=== PATIENT | female | born 1995 | race Caucasian/White ===

== ENCOUNTER → 2017-01-28 | Outpatient (CLI) | payer BC | END | disposition home or self-care (01) | LOC: C.PAPS 11:36 | PROVIDERS: ATTEND Family Medicine | DX: Z01.419 Encounter for gynecological examination (general) (routine) without abnormal findings (principal) ==

== ENCOUNTER 2018-09-27 13:01 | Inpatient (IN) ==
[2018-09-27] MEDS: LACTATED RINGER'S 1,000 ML IV PRN ×4 (13:25→21:22)
[2018-09-27] MEDS ORDERED: OXYTOCIN 30 UNITS/500 ML BAG IV PRN ×2 (13:33→20:14)
--- NOTE | 2018-09-27 13:48 | History & Physical Report ---
Date of Service September 27, 2018 Assessment & Plan (1) Normal labor: IUP at 40+ weeks in labor patient requesting epidural analgesia anticipate vaginal delivery. Present on Admission?: Yes (2) Post-dates : History of Present Illness Primary Care Provider: Sheila Noble MD Patient is a 23 yo white female who presents at 40+ weeks in active labor. no bloody show or SROM. GBS(-) was complicated a diffuse rash that occured first time at 14 weeks & then reoccurred again about 2 weeks ago for which she received a steroid dose pack. She finished it 6 days ago. Allergies Allergy/AdvReac Type Severity Reaction Status Date / Time No Known Drug Allergies Allergy Verified 09/25/18 09:03 latex AdvReac Rash Verified 09/25/18 09:03 Home Medications Home Medications Medication Instructions Recorded Confirmed Type vit [id number] 1 tab PO DAILY 05/19/18 09/25/18 History [ Vitamin] ferrous sulfate 325 tab PO DAILY 09/09/18 09/25/18 History methylprednisolone 4 mg tablets in 4 mg PO .COMPLEX #21 ea 09/17/18 09/25/18 Rx a dose pack Patient History Medical History Anxiety No meds Currently Depression No meds Exercise-induced asthma Has not had to use an inhaler for years History of renal calculi History of varicella Hx of migraines No meds [place] teeth removed Surgical History History of repair of ACL 2013 S/P wisdom tooth extraction 2016 Family History Mother Depression Social History Preferred Language: Macanese Communication Ability: Effective Clinical Research Tech Required: No Beliefs That Will Affect Care: None marital status: Single Current Living Situation: Significant Other current occupational status: unemployed Feels Safe at Home: Yes Smoking Status: Never smoker Second Hand Exposure: No ; Hx Alcohol Use: No Hx Substance Use: No Review of Systems All systems reviewed & are unremarkable except as noted in HPI & below Physical Exam Constitutional: WD/WN, vitals as above Respiratory: normal respiratory effort, lungs clear to auscultation Cardiovascular: RRR, no murmur, no edema Extremities: no calf tenderness Gastrointestinal (Abdomen): normal bowel sounds, soft, nontender, no hepatosplenomegaly Psychiatric: A+Ox3, euthymic affect Genitourinary: OB Exam Abdomen: + vertex, + estimated weight (7-8 pounds) and + regular contractions (every 2-3 minutes) Manual OB Exam: + cervical dilation 5 cm, + cervical effacement 100% and + station -1 OB Exam Monitor Tracing: + external FHT monitor used, + external uterine monitor used, + category II and + normal FHT variability Code Status & VTE Plan VTE Prophylaxis Plan VTE Prophylaxis will be ordered: No
[2018-09-27 13:56] LABS: Hematocrit (blood only) 34.9 % (37-47); Hemoglobin 11.4 g/dL (12.0-16.0); Mean Platelet Volume 11.6 fL (7.4-10.4); Platelet Count 206 K/uL (130-400); RDW Coefficient of Variation 14.6 % (11.5-14.5); RDW Standard Deviation 41.1 fL (36.4-46.3); Red Blood Count 4.53 M/uL (4.2-5.4); White Blood Count 17.55 K/uL (4.8-10.8)
[2018-09-27 14:01] LABS: Mean Corpuscular Hgb Conc 32.7 g/dL (32-36)
[2018-09-27] MEDS ORDERED: BUPIVACAINE 0.25% 30 ML VIAL ONE (14:56)
[2018-09-27] MEDS ORDERED: ePHEDrine sulfate 50 MG/ML AMP ONE (14:56)
[2018-09-27] MEDS ORDERED: fentaNYL citrate 100 MCG/2 ML VIAL ONE (14:56)
[2018-09-27] MEDS ORDERED: fentaNYL 2MCG/ML ROPIV 1.25MG/ML 100 ML BAG EPI ONE (14:57)
--- NOTE | 2018-09-27 15:08 | Anesthesiology Consultation ---
Date of Service September 27, 2018 Assessment & Plan (1) Encounter for pre-operative examination: Chart Review Chart Review: Patient NOT seen in Pre Admission Testing and Acceptable Risk for Labor Epidural Consults Requested none ASA ASA2 Proposed Anesthesia Anesthesia Type: CSE History Height/Weight Height: 5 ft Weight: 72.575 kg Allergies Allergy/AdvReac Type Severity Reaction Status Date / Time No Known Drug Allergies Allergy Verified 09/25/18 09:03 latex AdvReac Rash Verified 09/25/18 09:03 Medications Home Medications Medication Instructions Recorded Confirmed Last Taken vit no.[id number] 1 tab PO DAILY 05/19/18 09/27/18 09/26/18 [ Vitamin] ferrous sulfate 325 tab PO DAILY 09/09/18 09/27/18 09/26/18 Active Medications Generic Name Dose Route Start Last Admin Trade Name Freq PRN Reason Stop Dose Admin Lactated Ringer's 1,000 mls @ 125 mls/hr 09/27/18 13:33 09/27/18 14:47 Lr IV 09/29/18 13:32 999 mls/hr .Q8H PRN Administration L&D Protocol Protocol Past Medical History Medical History Anxiety No meds Currently Depression No meds Exercise-induced asthma Has not had to use an inhaler for years History of renal calculi History of varicella Hx of migraines No meds [place] teeth removed Past Family History Family History Mother Depression Past Surgical History Surgical History History of repair of ACL 2013 S/P wisdom tooth extraction 2016 Social History Smoking Status: Never smoker Hx Alcohol Use: No Hx Substance Use: No substance use type: does not use Physical Exam Vital Signs Last Vital Signs Temp 36.9 C 09/27/18 14:07 Pulse 101 H 09/27/18 15:05 Resp 16 09/27/18 14:07 BP 109/57 L 09/27/18 15:05 Pulse Ox 97 09/27/18 15:05 Testing Laboratory Results 09/27/18 13:45
[2018-09-27] MEDS ORDERED: NALOXONE HCL 0.4 MG/1 ML VIAL/CARP IV PRN ×2 (15:22→23:31)
[2018-09-27] MEDS ORDERED: ePHEDrine sulfate 50 MG/ML AMP IV PRN ×2 (15:22→23:31)
[2018-09-27] MEDS ORDERED: NALBUPHINE HCL INJ 10 MG/ML AMP IV PRN ×2 (15:22→23:31)
[2018-09-27] MEDS ORDERED: fentaNYL 2MCG/ML ROPIV 1.25MG/ML 100 ML BAG EPI PRN (15:22)
[2018-09-27] MEDS ORDERED: ONDANSETRON INJ 2 MG/ML 2 ML VIAL IV PRN ×2 (15:22→23:31)
[2018-09-27] MEDS ORDERED: NALOXONE HCL 1 MG in SODIUM CHLORIDE 0.9% 1000ML 1,000 ML IV PRN ×2 (15:22→23:31)
[2018-09-27] MEDS ORDERED: DiphenhydrAMINE HCL 50 MG/ML VIAL IV PRN ×2 (15:22→23:31)
[2018-09-27] MEDS ORDERED: CALCIUM CARBONATE 500 MG CHEWABLE TAB PO PRN (20:31)
[2018-09-27] MEDS ORDERED: CALCIUM CARBONATE 500 MG CHEWABLE TAB ONE (20:31)
[2018-09-27] MEDS ORDERED: ACETAMINOPHEN 325 MG TAB PO PRN (20:42)
[2018-09-27] MEDS ORDERED: ACETAMINOPHEN 325 MG TAB ONE (20:43)
[2018-09-27] MEDS ORDERED: ACETAMINOPHEN 65 ML IV PRN (21:30)
[2018-09-27] MEDS ORDERED: LACTATED RINGER'S 1,000 ML IV SCH (23:15)
[2018-09-27] MEDS ORDERED: CITRIC ACID/SODIUM CITRATE 15 ML UDC ONE (23:16)
[2018-09-27] MEDS ORDERED: cefOXitin 2,000 MG in DEXTROSE 5% 50 ML IV STA (23:19)
[2018-09-27] MEDS ORDERED: CITRIC ACID/SODIUM CITRATE 15 ML UDC PO STA (23:20)
[2018-09-27] MEDS ORDERED: MEPERIDINE HCL 25 MG/ML CARP IV PRN (23:31)
[2018-09-27] MEDS ORDERED: HYDROmorphone INJ 0.5 MG/0.5 ML SYR IV PRN (23:31)
[2018-09-27] MEDS ORDERED: MoRPHine SULFATE PF 1 MG/ML 10 ML AMP/VIAL INT SPINAL ONE (23:31)
[2018-09-27] MEDS ORDERED: NALOXONE HCL 0.08 MG in SYRINGE 1.8 ML IV PRN (23:31)
[2018-09-27] MEDS ORDERED: PROMETHAZINE HCL 25 MG in SODIUM CHLORIDE 0.9% 50 ML IV PRN (23:31)
[2018-09-27] MEDS ORDERED: LACTATED RINGER'S 500 ML IV PRN (23:31)
[2018-09-27] MEDS ORDERED: SODIUM CHLORIDE 0.9% 1000ML 1,000 ML IV SCH (23:45)
[2018-09-27] MEDS ORDERED: DC INTRASPINAL MORPHINE SCH (23:45)
[2018-09-27] MEDS ORDERED: NO NARCOTICS OR SEDATIVES SCH (23:45)
[2018-09-27] MEDS ORDERED: OXYTOCIN 10 UNITS/ML VIAL ONE (23:58)
[2018-09-27] MEDS ORDERED: MoRPHine SULFATE PF 1 MG/ML 10 ML AMP/VIAL ONE (23:58)
[2018-09-27] MEDS ORDERED: PHENYLEPHRINE 100MCG/ML 5ML SYR ONE (23:59)
[2018-09-28] MEDS ORDERED: LACTATED RINGER'S 1,000 ML IV SCH ×2 (00:15→00:45)
[2018-09-28] MEDS ORDERED: BENZOCAINE 20% AER SPR 82.5 GM CAN EXT PRN (00:36)
[2018-09-28] MEDS ORDERED: SENNA 8.6 MG TAB PO PRN (00:36)
[2018-09-28] MEDS ORDERED: HYDROCORTISONE ACETATE 25 MG SUPP PR PRN (00:36)
[2018-09-28] MEDS ORDERED: MAGNESIUM HYDROXIDE SUSP 30 ML UDC PO PRN (00:36)
[2018-09-28] MEDS ORDERED: DIPHTHERIA/TETANUS/PERTUSSIS 0.5 ML SYR/VIAL IM ONE (00:36)
[2018-09-28] MEDS ORDERED: SUPERCREAM 0.870% 15 GM JAR EXT PRN (00:36)
[2018-09-28] MEDS ORDERED: OXYTOCIN 20 UNITS in D5W AND LACTATED RINGERS 1,000 ML IV SCH (00:45)
--- NOTE | 2018-09-28 00:59 | Anesthesia Procedure Note ---
Date of Service September 28, 2018 Anesthesia Post Epidural Note Vital Signs Vital Signs: Temp Pulse Resp BP Pulse Ox 38.0 C H 117 H 20 116/58 L 99 09/27/18 22:58 09/28/18 00:57 09/27/18 22:58 09/28/18 00:44 09/28/18 00:57 Notes Mental Status: alert / awake / arousable Nausea / Vomiting: adequately controlled Pain: adequately controlled Airway Patency, RR, SpO2: stable & adequate BP & HR: stable & adequate Hydration State: stable & adequate Neuraxial Anesthesia: was administered and sensory block is resolving Anesthetic Complications: no major complications apparent and Pt Satisfied with anesthetic care Epidural: Removed without complications and With tip intact
--- NOTE | 2018-09-28 01:07 | Anesthesiology Progress Note ---
Date of Service September 28, 2018 Anesthesia Post Procedure Vital Signs Vital Signs: Temp Pulse Resp BP Pulse Ox 09/28/18 01:03 83 115/72 09/28/18 01:02 92 H 116/73 100 09/28/18 00:57 117 H 99 09/28/18 00:52 123 H 94 09/28/18 00:47 118 H 100 09/28/18 00:44 120 H 116/58 L 09/27/18 23:25 136 H 97 09/27/18 23:20 94 H 98 09/27/18 23:15 121 H 97 09/27/18 23:10 97 H 100 09/27/18 23:05 106 H 99 09/27/18 23:00 84 99 09/27/18 22:58 38.0 C H 20 09/27/18 22:55 117 H 98 09/27/18 22:50 91 H 99 09/27/18 22:47 85 112/69 09/27/18 22:45 88 99 09/27/18 22:40 100 H 100 09/27/18 22:35 82 99 09/27/18 22:31 89 108/61 09/27/18 22:30 92 H 100 09/27/18 22:25 78 100 09/27/18 22:20 80 99 09/27/18 22:17 83 117/68 09/27/18 22:15 85 97 09/27/18 22:10 87 98 09/27/18 22:05 84 97 09/27/18 22:01 83 126/66 09/27/18 22:00 89 98 09/27/18 21:55 83 99 09/27/18 21:50 96 H 98 09/27/18 21:45 102 H 98 09/27/18 21:40 82 98 09/27/18 21:35 94 H 97 09/27/18 21:31 100 H 121/72 09/27/18 21:30 81 98 09/27/18 21:25 37.8 C H 92 H 18 98 09/27/18 21:20 77 98 09/27/18 21:16 81 122/77 09/27/18 21:15 80 98 09/27/18 21:10 80 100 09/27/18 21:05 85 97 09/27/18 21:01 84 115/73 08/18/19 21:00 83 98 18/19 20:55 103 H 98 18/19 20:50 86 98 18/19 20:46 122/77 18/19 20:45 81 98 18/19 20:40 84 98 18/19 20:36 38.0 C H 18 18/19 20:35 91 H 98 18/19 20:31 96 H 125/75 18/19 20:30 89 98 18/19 20:25 84 97 18/19 20:20 99 H 97 18/19 20:17 96 H 123/80 18/19 20:15 104 H 97 18/19 20:10 89 97 18/19 20:05 78 98 18/19 20:02 82 130/83 18/19 20:00 88 97 18/19 19:55 90 97 18/19 19:50 78 97 18/19 19:46 85 130/84 18/19 19:45 86 98 18/19 19:40 92 H 97 18/19 19:35 94 H 97 18/19 19:31 76 116/66 18/19 19:30 83 97 18/19 19:25 79 98 18/19 19:20 77 97 18/19 19:17 77 109/62 18/19 19:15 79 98 18/19 19:10 78 98 18/19 19:08 37.3 C 18 18/19 19:05 81 98 18/19 19:02 75 118/71 18/19 19:00 76 97 18/19 18:55 82 98 18/19 18:50 84 96 18/19 18:47 83 119/63 18/19 18:45 85 96 18/19 18:40 37.0 C 86 16 98 18/19 18:35 75 97 18/19 18:31 72 120/70 18/19 18:30 76 97 18/19 18:25 86 97 18/19 18:20 78 97 18/19 18:18 18 08/18/19 18:17 102 H 16 129/79 18/19 18:15 81 98 18/19 18:10 78 98 1819 18:05 82 97 18/19 18:01 71 125/69 1819 18:00 84 98 1819 17:55 96 H 97 18/19 17:50 82 98 18/19 17:46 70 120/73 18/19 17:45 71 98 18/19 17:40 102 H 97 18/19 17:35 83 98 18/19 17:31 71 16 112/65 18/19 17:30 77 97 18/19 17:25 75 98 18/19 17:20 81 98 18/19 17:18 73 109/67 18/19 17:15 74 97 19 17:10 74 97 1819 17:05 72 98 19 17:02 71 116/57 L 09/27/18 17:00 81 18 97 1819 16:55 74 97 1819 16:50 73 98 18/19 16:47 76 18 125/69 19 16:45 78 98 18/19 16:40 92 H 98 19 16:35 85 98 1819 16:31 79 107/68 18/19 16:30 76 99 18/19 16:25 90 98 1819 16:20 71 97 1819 16:17 69 16 111/59 L 1819 16:15 69 98 18/19 16:10 78 97 18/19 16:05 85 98 18/19 16:01 96 H 113/57 L 18/19 16:00 86 98 18/19 15:55 97 H 18 98 18/19 15:50 106 H 98 18/19 15:45 84 104/56 L 97 18/19 15:43 86 107/55 L 18/19 15:41 73 106/57 L 18/19 15:40 86 98 18/19 15:39 72 100/55 L 08/18/19 15:37 95 H 108/61 09/27/18 15:35 90 107/57 L 97 09/27/18 15:33 104 H 18 105/58 L 09/27/18 15:31 102 H 109/55 L 09/27/18 15:30 82 98 09/27/18 15:29 88 18 112/58 L 09/27/18 15:27 90 111/55 L 09/27/18 15:25 78 18 115/56 L 98 09/27/18 15:23 90 109/58 L 09/27/18 15:21 82 18 116/62 09/27/18 15:20 76 97 09/27/18 15:19 89 18 101/58 L 09/27/18 15:17 83 109/58 L 09/27/18 15:15 89 105/57 L 97 09/27/18 15:13 86 18 101/58 L 09/27/18 15:11 72 108/57 L 09/27/18 15:10 78 97 09/27/18 15:09 90 18 108/57 L 09/27/18 15:07 76 114/55 L 09/27/18 15:05 101 H 18 109/57 L 97 09/27/18 15:03 82 111/56 L 09/27/18 15:01 86 108/58 L 09/27/18 15:00 83 97 09/27/18 14:59 93 H 18 108/59 L 09/27/18 14:57 86 104/58 L 09/27/18 14:55 37.0 C 97 H 18 108/58 L 97 09/27/18 14:50 85 97 09/27/18 14:47 90 132/83 09/27/18 14:45 93 H 99 09/27/18 14:40 82 99 09/27/18 14:35 80 100 09/27/18 14:30 81 100 09/27/18 14:25 90 99 09/27/18 14:20 92 H 100 09/27/18 14:15 86 100 09/27/18 14:10 82 100 09/27/18 14:07 36.9 C 89 16 98 09/27/18 14:05 89 98 09/27/18 14:00 97 H 98 09/27/18 13:55 83 99 09/27/18 13:50 91 H 99 09/27/18 13:46 96 H 133/87 Transfer of Care Handoff Completed per policy Notes Mental Status: alert / awake / arousable and participated in evaluation Patient Amnestic to Procedure: Yes Nausea / Vomiting: adequately controlled Pain: adequately controlled Airway Patency, RR, SpO2: stable & adequate BP & HR: stable & adequate Hydration State: stable & adequate Neuraxial Anesthesia: was administered and sensory block is resolving Anesthetic Complications: no major complications apparent
[2018-09-28] MEDS: KETOROLAC 30 MG/ML VIAL IV PRN ×2 (01:35→15:22)
--- NOTE | 2018-09-28 02:03 | Operative Report ---
DATE OF OPERATION: 09/27/2018 SURGEON: Heather Sheppard MD SHORE WORKING SUPERVISOR: Maribel Miller RN. PREOPERATIVE DIAGNOSIS: intolerance of labor. POSTOPERATIVE DIAGNOSES: intolerance of labor plus marginal abruption in occiput posterior presentation, delivery of a viable female , 9 pounds 9 ounces, Apgars 9 and 9. PROCEDURE: Primary low transverse section. ANESTHESIA: Epidural. BLOOD LOSS: 600 mL. HISTORY: The patient is a 23-year-old G1, P0 white female, EDC of 09/21/2018 who presented in active labor. She received effective epidural analgesia. There were moderate variables that responded to position change. Otherwise, initially the heart tracing was reassuring. Contractions were every 2 minutes. Membranes were ruptured for clear fluid. She progressed to 7 cm, but unfortunately during this time period, she developed a temperature to 38 degrees centigrade. The heart tracing then began to show late decelerations and tachycardia. There also continued to be a large amount of bloody show suspicious for an abruption. Decision was then made to proceed to section because the late decelerations did not respond to fluids, position change, or oxygen. The patient and the father of baby were agreeable to proceeding with the section and all questions were answered to their satisfaction. GROSS FINDINGS: The uterus is gravid and consistent with term and size. Bilateral ovaries and fallopian tubes are grossly normal. The was delivered from the occiput posterior presentation. The placenta delivered easily with moderate traction on the cord. There appeared to be a small amount of clot on the leading edge of the placenta. DESCRIPTION OF PROCEDURE: After the patient received adequate epidural anesthesia, she was prepped and draped in the usual sterile fashion. A low transverse skin incision was made with a scalpel and carried to the fascia with the same scalpel. The fascial incision was then extended with Blount scissors. The edges were then grasped with Jose Miguel clamps and the underlying rectus muscles bluntly and sharply dissected off of the overlying fascia. The peritoneum was then entered bluntly. The bladder blade was then placed into the peritoneal cavity. The bladder flap was then taken down and placed behind the bladder blade. The lower uterine segment was entered with a scalpel and extended transversely. Membranes were ruptured for clear fluid. The was delivered from the occiput posterior presentation with moderate fundal pressure. The rest of the delivered through the incision without difficulty. There was spontaneous crying. The was moving all 4 limbs and was vigorous upon delivery. The cord was then clamped and cut and the infant was handed off to Dr. Mooney who was in attendance as record pressman. The placenta was then expressed intact with a 3-vessel cord. The uterus was exteriorized and covered with a clean lap sponge. The uterine cavity was gently cleared of some retained membranes. Otherwise, the uterine cavity was free of any other placental tissue or membranes. The uterus was then closed in 2 layers in a running locking imbricating fashion with 0 Monocryl. Hemostasis was noted to be excellent on the uterine incision. The posterior cul-de-sac was irrigated with normal saline. A large clot was removed from the right gutter. The left gutter was clear of any clots or fluid. The anterior cul-de-sac was then irrigated with normal saline. The incision was examined once more and continued to have excellent hemostasis. This was done after the uterus was placed back inside the abdominal cavity. After ensuring that the uterine incision had excellent hemostasis, the rectus muscles were brought together in the midline with individual stitches of 0 Monocryl. The fascia was closed in a running fashion with 0 Vicryl. After irrigating the adipose layer with normal saline, the skin edges were reapproximated using a subcuticular stitch of 4-0 Vicryl. Urine was clear at the end of the case. Mother and were doing well after delivery. I attest to the content of the Intraoperative Record and any orders documented therein. Any exceptions are noted below. MARTHA
[2018-09-28] MEDS: OXYTOCIN 20 UNITS in LACTATED RINGER'S 1,000 ML IV SCH ×2 (02:38→11:15)
--- NOTE | 2018-09-28 06:18 | Obstetrical Progress Note ---
Date of Service September 28, 2018 Assessment & Plan (1) S/P emergency : Sarah is a 23 yo on POD 1 after an emergency c/s that was done due to a intolerance of labor (late decelerations non responsive to intervention with position changes, oxygen and fluids), and suspected placental abruption. - GBS - , Blood Type O+, Rubella immune -Vitals reviewed and WNL (Tmax 38.0); patient's fever has resolved. -patient is doing clinically well Remove guy this evening; encourage ambulation, progress diet as tolerated, provide analgesia as needed, monitor lochia - After discharge will have [address] Sheppard. Subjective Ambulation: ambulating normally Voiding: guy catheter in place Passing Gas:: Yes Diet Tolerance:: regular diet Lochia:: Moderate Feeding Type:: breast feeding Current Pain Level(1-10): 3 patient examined at bedside Constitutional: no fever, no chills and no sweats Respiratory: no cough and no dyspnea Cardiovascular: no chest pain and no palpitations Breast: no breast pain Gastrointestinal: no nausea and no vomiting Genitourinary (female): no dysuria and no urinary frequency Neurologic: no headache(s) Physical Exam Constitutional WD/WN, vitals as above no acute distress Respiratory normal respiratory effort, lungs clear to auscultation does not use accessory muscles Auscultation: no crackles, no rhonchi, no wheezes and no pleural rub Cardiovascular Rate/Rhythm: regular rate and regular rhythm Heart Sounds: normal S1 and normal S2; no gallop, no murmur and no cardiac rub Extremities: no calf tenderness and no pedal edema Gastrointestinal (Abdomen) Inspection/Auscultation: normal bowel sounds; abdomen not distended Percussion/Palpation: abdomen soft Genitourinary Uterus: fundus firm, palpable _ cm below the umbilicus surgical incision: dressing is in place and dry; appropriate post- operative tenderness Results & Data Vital Signs (Past 12 Hours) Vital Signs Temp Pulse Pulse Resp BP BP Pulse Ox 09/28/18 06:05 16 97 09/28/18 05:40 36.6 C 73 18 118/79 97 09/28/18 04:10 36.5 C 87 18 114/68 95 09/28/18 03:40 36.8 C 18 09/28/18 03:33 77 107/61 95 09/28/18 03:31 83 93 09/28/18 03:28 113 H 97 09/28/18 03:24 84 104/66 09/28/18 03:23 87 96 09/28/18 03:18 85 95 09/28/18 03:16 82 94 09/28/18 03:13 85 105/56 L 96 09/28/18 03:08 80 95 09/28/18 03:04 81 101/55 L 09/28/18 03:03 81 95 09/28/18 02:58 85 95 09/28/18 02:54 179 H 112/52 L 09/28/18 02:53 88 96 09/28/18 02:48 88 96 09/28/18 02:44 36.8 C 18 09/28/18 02:43 96 H 101/55 L 97 09/28/18 02:38 87 96 09/28/18 02:34 90 103/59 L 09/28/18 02:33 88 96 09/28/18 02:30 20 09/28/18 02:28 99 H 96 09/28/18 02:24 88 110/56 L 09/28/18 02:23 91 H 96 09/28/18 02:18 85 96 09/28/18 02:13 83 117/61 96 09/28/18 02:08 82 96 09/28/18 02:04 91 H 122/65 09/28/18 02:03 91 H 96 09/28/18 01:58 73 95 09/28/18 01:53 86 96 09/28/18 01:48 79 98 09/28/18 01:43 36.8 C 75 18 117/77 09/28/18 01:42 69 98 09/28/18 01:37 72 97 09/28/18 01:33 74 18 124/76 09/28/18 01:32 84 98 09/28/18 01:27 77 98 09/28/18 01:24 79 18 119/71 09/28/18 01:22 74 98 09/28/18 01:17 71 97 09/28/18 01:14 78 18 111/69 09/28/18 01:12 82 98 09/28/18 01:07 75 99 09/28/18 01:03 83 115/72 09/28/18 01:02 92 H 16 116/73 100 09/28/18 00:57 117 H 99 09/28/18 00:55 18 09/28/18 00:52 123 H 94 09/28/18 00:47 118 H 100 09/28/18 00:44 37.0 C 120 H 18 116/58 L 09/27/18 23:25 136 H 97 09/27/18 23:20 94 H 98 09/27/18 23:15 121 H 97 09/27/18 23:10 97 H 100 09/27/18 23:05 106 H 99 09/27/18 23:00 84 99 09/27/18 22:58 38.0 C H 20 09/27/18 22:55 117 H 98 09/27/18 22:50 91 H 99 09/27/18 22:47 85 112/69 09/27/18 22:45 88 99 09/27/18 22:40 100 H 100 09/27/18 22:35 82 99 09/27/18 22:31 89 108/61 09/27/18 22:30 92 H 100 09/27/18 22:25 78 100 09/27/18 22:20 80 99 09/27/18 22:17 83 117/68 09/27/18 22:15 85 97 09/27/18 22:10 87 98 09/27/18 22:05 84 97 09/27/18 22:01 83 126/66 09/27/18 22:00 89 98 09/27/18 21:55 83 99 09/27/18 21:50 96 H 98 09/27/18 21:45 102 H 98 09/27/18 21:40 82 98 09/27/18 21:35 94 H 97 09/27/18 21:31 100 H 121/72 09/27/18 21:30 81 98 09/27/18 21:25 37.8 C H 92 H 18 98 09/27/18 21:20 77 98 18 21:16 81 122/77 09/27/18 21:15 80 98 18 21:10 80 100 18 21:05 85 97 09/27/18 21:01 84 115/73 09/27/18 21:00 83 98 08/18/19 20:55 103 H 98 18/19 20:50 86 98 18/19 20:46 122/77 18/19 20:45 81 98 18/19 20:40 84 98 18/19 20:36 38.0 C H 18 18/19 20:35 91 H 98 18/19 20:31 96 H 125/75 18/19 20:30 89 98 18/19 20:25 84 97 18/19 20:20 99 H 97 18/19 20:17 96 H 123/80 18/19 20:15 104 H 97 18/19 20:10 89 97 18/19 20:05 78 98 18/19 20:02 82 130/83 18/19 20:00 88 97 18/19 19:55 90 97 18/19 19:50 78 97 18/19 19:46 85 130/84 18/19 19:45 86 98 18/19 19:40 92 H 97 18/19 19:35 94 H 97 18/19 19:31 76 116/66 18/19 19:30 83 97 18/19 19:25 79 98 18/19 19:20 77 97 18/19 19:17 77 109/62 18/19 19:15 79 98 18/19 19:10 78 98 18/19 19:08 37.3 C 18 1819 19:05 81 98 18/19 19:02 75 118/71 18/19 19:00 76 97 18/19 18:55 82 98 18/19 18:50 84 96 18/19 18:47 83 119/63 18/19 18:45 85 96 18/19 18:40 37.0 C 86 16 98 18/19 18:35 75 97 18/19 18:31 72 120/70 18/19 18:30 76 97 18/19 18:25 86 97 18/19 18:20 78 97 18/19 18:18 18 18/19 18:17 102 H 16 129/79 08/18/19 18:15 81 98
--- NOTE | 2018-09-28 08:10 | Obstetrical Progress Note ---
Date of Service September 28, 2018 Assessment & Plan (1) S/P emergency : satisfactory post-op progress D/C guy & dressing at about 1500 today. continue rest of current care plan Day #:: 1 Subjective Voiding: guy catheter in place Passing Gas:: No Diet Tolerance:: clear liquids Lochia:: Small Feeding Type:: breast feeding Patient had nausea overnight & received zofran & phenergan which has resolved the nausea, but now she is sleepy. pain currently well controlled. guy draining clear urine Review of Systems All systems reviewed & are unremarkable except as noted in HPI & below Physical Exam Constitutional WD/WN, vitals as above Cardiovascular Extremities: no calf tenderness Gastrointestinal (Abdomen) Inspection/Auscultation: + abdomen distended and + abdominal surgical incision (dressing dry & intact); + abnormal bowel sounds Psychiatric A+Ox3, euthymic affect Results & Data Vital Signs (Past 12 Hours) Vital Signs Temp Pulse Pulse Resp BP BP Pulse Ox 09/28/18 07:25 97.9 F 74 16 100/67 97 09/28/18 06:05 16 97 09/28/18 05:40 97.9 F 73 18 118/79 97 09/28/18 04:10 97.7 F 87 18 114/68 95 09/28/18 03:40 98.2 F 18 09/28/18 03:33 77 107/61 95 09/28/18 03:31 83 93 09/28/18 03:28 113 H 97 09/28/18 03:24 84 104/66 09/28/18 03:23 87 96 09/28/18 03:18 85 95 09/28/18 03:16 82 94 09/28/18 03:13 85 105/56 L 96 09/28/18 03:08 80 95 09/28/18 03:04 81 101/55 L 09/28/18 03:03 81 95 09/28/18 02:58 85 95 09/28/18 02:54 179 H 112/52 L 09/28/18 02:53 88 96 09/28/18 02:48 88 96 09/28/18 02:44 98.2 F 18 09/28/18 02:43 96 H 101/55 L 97 09/28/18 02:38 87 96 09/28/18 02:34 90 103/59 L 09/28/18 02:33 88 96 09/28/18 02:30 20 09/28/18 02:28 99 H 96 09/28/18 02:24 88 110/56 L 09/28/18 02:23 91 H 96 09/28/18 02:18 85 96 09/28/18 02:13 83 117/61 96 09/28/18 02:08 82 96 09/28/18 02:04 91 H 122/65 09/28/18 02:03 91 H 96 09/28/18 01:58 73 95 09/28/18 01:53 86 96 09/28/18 01:48 79 98 09/28/18 01:43 98.2 F 75 18 117/77 09/28/18 01:42 69 98 09/28/18 01:37 72 97 09/28/18 01:33 74 18 124/76 09/28/18 01:32 84 98 09/28/18 01:27 77 98 09/28/18 01:24 79 18 119/71 09/28/18 01:22 74 98 09/28/18 01:17 71 97 09/28/18 01:14 78 18 111/69 09/28/18 01:12 82 98 09/28/18 01:07 75 99 09/28/18 01:03 83 115/72 09/28/18 01:02 92 H 16 116/73 100 09/28/18 00:57 117 H 99 09/28/18 00:55 18 09/28/18 00:52 123 H 94 09/28/18 00:47 118 H 100 09/28/18 00:44 98.6 F 120 H 18 116/58 L 09/27/18 23:25 136 H 97 09/27/18 23:20 94 H 98 09/27/18 23:15 121 H 97 09/27/18 23:10 97 H 100 09/27/18 23:05 106 H 99 09/27/18 23:00 84 99 09/27/18 22:58 100.4 F H 20 09/27/18 22:55 117 H 98 09/27/18 22:50 91 H 99 09/27/18 22:47 85 112/69 09/27/18 22:45 88 99 09/27/18 22:40 100 H 100 08/18/19 22:35 82 99 08/18/19 22:31 89 108/61 18/19 22:30 92 H 100 18/19 22:25 78 100 0818/19 22:20 80 99 0818/19 22:17 83 117/68 18/19 22:15 85 97 18/19 22:10 87 98 18/19 22:05 84 97 18/19 22:01 83 126/66 18/19 22:00 89 98 0818/19 21:55 83 99 18/19 21:50 96 H 98 18/19 21:45 102 H 98 18/19 21:40 82 98 18/19 21:35 94 H 97 18/19 21:31 100 H 121/72 18/19 21:30 81 98 18/19 21:25 100.0 F H 92 H 18 98 18/19 21:20 77 98 18/19 21:16 81 122/77 18/19 21:15 80 98 18/19 21:10 80 100 18/19 21:05 85 97 18/19 21:01 84 115/73 18/19 21:00 83 98 18/19 20:55 103 H 98 18/19 20:50 86 98 /18/19 20:46 122/77 18/19 20:45 81 98 18/19 20:40 84 98 18/19 20:36 100.4 F H 18 18/19 20:35 91 H 98 18/19 20:31 96 H 125/75 18/19 20:30 89 98 08/18/19 20:25 84 97 /18/19 20:20 99 H 97 18/19 20:17 96 H 123/80 18/19 20:15 104 H 97 18/19 20:10 89 97
[2018-09-28] MEDS: FERROUS SULFATE 325 MG TAB PO SCH (08:51)
[2018-09-28] MEDS: PRENATAL VITAMIN 1 TAB PO SCH (08:51)
[2018-09-28] MEDS: DOCUSATE SODIUM 100 MG CAP PO SCH ×2 (08:51→20:35)
[2018-09-28] MEDS: SIMETHICONE 80 MG CHEW PO SCH ×3 (08:51→18:19)
[2018-09-28] MEDS ORDERED: PROMETHAZINE HCL 25 MG in SODIUM CHLORIDE 0.9% 50 ML IV PRN (17:31)
[2018-09-28] MEDS ORDERED: MEPERIDINE HCL 50 MG/ML CARP IV PRN (17:31)
[2018-09-28] MEDS ORDERED: DiphenhydrAMINE HCL 50 MG/ML VIAL IV PRN (17:31)
[2018-09-28] MEDS ORDERED: KETOROLAC 30 MG/ML VIAL IV PRN (17:31)
[2018-09-28] MEDS ORDERED: ZOLPIDEM TARTRATE 5 MG TAB PO PRN (17:31)
[2018-09-28] MEDS ORDERED: ONDANSETRON INJ 2 MG/ML 2 ML VIAL IV PRN (17:31)
[2018-09-28] MEDS ORDERED: BISACODYL 5 MG TABEC PO SCH (20:00)
[2018-09-28] MEDS: IBUPROFEN 600 MG TAB PO PRN (20:34)
[2018-09-28] MEDS: OXYCODONE/ACETAMINOPHEN 5mg/325mg TAB PO PRN (23:09)
[2018-09-29] MEDS: OXYCODONE/ACETAMINOPHEN 5mg/325mg TAB PO PRN ×5 (05:33→22:36)
[2018-09-29] MEDS: IBUPROFEN 600 MG TAB PO PRN ×5 (05:33→22:34)
--- NOTE | 2018-09-29 06:26 | Obstetrical Progress Note ---
Date of Service <Maria Ines Hall MD - Last Filed: 09/29/18 06:30> September 29, 2018 Assessment & Plan <Maria Ines Hall MD - Last Filed: 09/29/18 06:30> (1) S/P emergency : Sarah is a 23 yo on POD 2 after an emergency c/s that was done due to a intolerance of labor (late decelerations non-responsive to intervention with position changes, oxygen and fluids), and suspected placental abruption. - GBS - , Blood Type O+, Rubella immune -Vitals reviewed and WNL; patient has not been febrile since prior to delivery -patient with satisfactory post-operative progress encourage ambulation, progress diet as tolerated, provide analgesia as needed, monitor lochia - After discharge will have [address] Sheppard. Subjective <Maria Ines Hall MD - Last Filed: 09/29/18 06:30> Ambulation: ambulating normally Voiding: no voiding problems Passing Gas:: Yes Diet Tolerance:: regular diet Lochia:: Moderate Feeding Type:: breast feeding Current Pain Level(1-10): 1 patient examined at bedside Constitutional: no fever, no chills and no sweats Respiratory: no cough and no dyspnea Cardiovascular: no chest pain and no palpitations Breast: no breast pain Gastrointestinal: no nausea and no vomiting Genitourinary (female): no dysuria and no urinary frequency Neurologic: no headache(s) Physical Exam <Maria Ines Hall MD - Last Filed: 09/29/18 06:30> Constitutional WD/WN, vitals as above no acute distress Respiratory normal respiratory effort, lungs clear to auscultation does not use accessory muscles Auscultation: no crackles, no rhonchi, no wheezes and no pleural rub Cardiovascular Rate/Rhythm: regular rate and regular rhythm Heart Sounds: normal S1 and normal S2; no gallop, no murmur and no cardiac rub Extremities: no calf tenderness and no pedal edema Gastrointestinal (Abdomen) Inspection/Auscultation: normal bowel sounds; abdomen not distended Percussion/Palpation: abdomen soft Genitourinary Uterus: fundus firm, palpable 1 cm below the umbilicus surgical incision: no erythema or warmth; appropriate post-op tenderness Results & Data <Maria Ines Hall MD - Last Filed: 09/29/18 06:30> Vital Signs (Past 12 Hours) Vital Signs Temp Pulse Resp BP Pulse Ox 09/28/18 23:20 36.8 C 105 H 20 126/79 96 09/28/18 18:30 16 96 <Allison Méndez MD, FACOG - Last Filed: 09/29/18 08:11> Co-Signing Physician Notes Resident Physician Supervision Note: I interviewed and examined the patient. Discussed with Dr. Hall and agree with findings and plan as documented in the note. Any exceptions or clarifications are listed here: Doing well. Making appropriate progress ppd 2. routine care. Documented By: Allison Méndez MD, FACOG Resident Activity Tracking <Maria Ines Hall MD - Last Filed: 09/29/18 06:30> Resident Involvement: Resident Care Provided Care Provided: OB Delivery
[2018-09-29 06:56] LABS: Basophils # (auto) 0.05 K/uL (0-0.2); Basophils % (auto) 0.2 %; Eosinophils # (auto) 0.25 K/uL (0-0.5); Eosinophils % (auto) 1.1 %; Hematocrit (blood only) 24.9 % (37-47); Hemoglobin 8.1 g/dL (12.0-16.0); Immature Granulocytes # (auto) 0.23 K/uL (0.00-0.02); Immature Granulocytes % (auto) 1.1 %; Lymphocytes % (auto) 10.1 %; Mean Corpuscular Hgb Conc 32.5 g/dL (32-36); Mean Corpuscular Volume 77.6 fL (80-100); Mean Platelet Volume 10.7 fL (7.4-10.4); Monocytes # (auto) 0.97 K/uL (0.11-0.59); Monocytes % (auto) 4.4 %; Neutrophils # (auto) 18.16 K/uL (1.4-6.5); Neutrophils % (auto) 83.1 %; Platelet Count 185 K/uL (130-400); RDW Coefficient of Variation 14.9 % (11.5-14.5); RDW Standard Deviation 42.2 fL (36.4-46.3); Red Blood Count 3.21 M/uL (4.2-5.4); White Blood Count 21.86 K/uL (4.8-10.8)
[2018-09-29] MEDS: DOCUSATE SODIUM 100 MG CAP PO SCH ×2 (09:32→21:11)
[2018-09-29] MEDS: FERROUS SULFATE 325 MG TAB PO SCH (09:32)
[2018-09-29] MEDS: PRENATAL VITAMIN 1 TAB PO SCH (09:32)
[2018-09-29] MEDS: SIMETHICONE 80 MG CHEW PO SCH ×3 (13:27→21:11)
[2018-09-30] MEDS ORDERED: BISACODYL 10 MG SUPP PR PRN (00:37)
--- NOTE | 2018-09-30 05:56 | Obstetrical Progress Note ---
Date of Service <Maria Ines Hall MD - Last Filed: 09/30/18 06:50> September 30, 2018 Assessment & Plan <Maria Ines Hall MD - Last Filed: 09/30/18 06:50> (1) S/P emergency : Sarah is a 23 yo on POD 3 after an emergency c/s that was done due to a intolerance of labor (late decelerations non-responsive to intervention with position changes, oxygen and fluids), and suspected placental abruption. - GBS - , Blood Type O+, Rubella immune -Vitals reviewed and WNL; patient has not been febrile since prior to delivery -hemoglobin reviewed: 11.4 on admission, down to 8.0 (09/29); patient asymptomatic; oral iron supplement ordered -patient with satisfactory post-operative progress discharge instructions reviewed. Patient to nesting status. - After discharge will have [address] Sheppard. Subjective <Maria Ines Hall MD - Last Filed: 09/30/18 06:50> Ambulation: ambulating normally Voiding: no voiding problems Passing Gas:: Yes Diet Tolerance:: regular diet Lochia:: Small Feeding Type:: breast feeding examined at bedside Physical Exam <Maria Ines Hall MD - Last Filed: 09/30/18 06:50> Constitutional WD/WN, vitals as above no acute distress Respiratory normal respiratory effort, lungs clear to auscultation does not use accessory muscles Auscultation: no crackles, no rhonchi, no wheezes and no pleural rub Cardiovascular Rate/Rhythm: regular rate and regular rhythm Heart Sounds: normal S1 and normal S2; no gallop, no murmur and no cardiac rub Extremities: no calf tenderness and no pedal edema Gastrointestinal (Abdomen) Inspection/Auscultation: normal bowel sounds; abdomen not distended Percussion/Palpation: abdomen soft Results & Data <Maria Ines Hall MD - Last Filed: 09/30/18 06:50> Vital Signs (Past 12 Hours) Vital Signs Temp Pulse Resp BP 09/30/18 00:05 36.8 C 96 H 18 117/79 <Makayla Grigsby DO - Last Filed: 09/30/18 08:43> Co-Signing Physician Notes Resident Physician Supervision Note: I was present with Dr. Hall during the history and exam. I discussed the case with the resident and agree with the findings and plan as documented in the note. Any exceptions or clarifications are listed here: POD#3 anticipate DC home this evening when baby is released by peds. DC instructions reviewed. Rx Percocet #20 tabs, [place] PDMP checked. Documented By: Makayla Grigsby, DO
[2018-09-30 06:36] LABS: Hematocrit (blood only) 26.7 % (37-47); Hemoglobin 8.5 g/dL (12.0-16.0)
[2018-09-30] MEDS: IBUPROFEN 600 MG TAB PO PRN ×3 (07:52→21:12)
[2018-09-30] MEDS: OXYCODONE/ACETAMINOPHEN 5mg/325mg TAB PO PRN ×3 (07:53→21:11)
[2018-09-30] MEDS: PRENATAL VITAMIN 1 TAB PO SCH (09:37)
[2018-09-30] MEDS: FERROUS SULFATE 325 MG TAB PO SCH (09:37)
[2018-09-30] MEDS: DOCUSATE SODIUM 100 MG CAP PO SCH ×2 (09:37→21:11)
[2018-09-30] MEDS: SIMETHICONE 80 MG CHEW PO SCH ×4 (09:37→21:11)
--- NOTE | 2018-10-01 20:43 | Discharge Summary ---
DATE OF ADMISSION: 09/27/2018 DATE OF DISCHARGE: 09/30/2018 PRINCIPAL DIAGNOSIS: Intrauterine at 40+ weeks in active labor, intolerance of labor. PRINCIPAL PROCEDURE: Primary low transverse section. HISTORY: The patient is a 23-year-old white female G1, P0 who presented at 40+ weeks in active labor. She received effective epidural analgesia. Membranes were ruptured for clear fluid. She progressed to 7 cm dilated when the baby began to have significant variable decelerations which were then progressed to late decelerations that did not respond to fluids, position change or oxygen. She underwent a primary low transverse section. The was in the occiput posterior presentation and the weighed 9 pounds 9 ounces. She also developed a temperature during the course of her labor to 38 degrees centigrade, which again did not respond to IV fluids and contributed to the intolerance of labor. She had an uncomplicated postop course. She remained afebrile throughout her stay. She was eating regular diet, voiding without difficulty and ambulating without difficulty on her 1st postop day. Her pain was well controlled with oral pain meds. Hemoglobin on admission was 11.4, hematocrit of 34.9. First postop day, hemoglobin 8.1, hematocrit 24.9. Second postop day, hemoglobin 8.5, hematocrit 26.7. She was sent home in good condition with prescriptions for Percocet 1 or 2 tablets p.o. q.4 hours p.r.n. pain, ibuprofen 600 mg p.o. q.4-6 hours p.r.n. pain. She is to be seen in the office in 6 weeks for followup visit. She is to call for any temperature elevation of 101 degrees or higher, heavy vaginal bleeding, burning with urination, increased redness, drainage or pain in her incision, calf tenderness or any other concerns. MARTHA
== END 2018-09-30 22:40 | disposition home or self-care (01) | DRG 786 ==
LOC: OPB 13:01 → 4S1 13:04 → 4S2 09-28 03:40

== ENCOUNTER 2021-04-18 05:28 | Inpatient (IN) ==
--- NOTE | 2021-04-13 12:00 | PAT Medication Instructions ---
Medication Instructions Date of Service April 13, 2021 Home Medications albuterol sulfate 90 mcg/actuation aerosol inhaler (ProAir HFA) 2 puff INHALATION UD PRN prenat.vits,wade,ayx-zfyq-hynrd 1 tab PO QAM DO NOT take the morning of surgery prenat.vits,wade,xev-jxnb-vlojn 1 tab PO QAM Take morning of surgery With a small sip of water, OTHERWISE NOTHING TO EAT OR DRINK AFTER MIDNIGHT: albuterol sulfate 90 mcg/actuation aerosol inhaler (ProAir HFA) 2 puff INHALATION UD PRN (use if needed; please bring with you to hospital day of surgery if possible) Take evening before surgery albuterol sulfate 90 mcg/actuation aerosol inhaler (ProAir HFA) 2 puff INHALATION UD PRN (if needed) Other Notes If you have any questions please call us at [phone] or [phone] or [phone] or [phone]
--- NOTE | 2021-04-16 10:52 | Anesthesiology Consultation ---
Date of Service April 16, 2021 Assessment & Plan (1) Encounter for pre-operative examination: - latex allergy. - COVID screening: Per assessment on 04/13/2021: Travel screen negative, no known COVID-19 positive contacts or current COVID-19 related symptoms in past 2 weeks. Preop COVID testing completed 04/16/2021 at [facility] appt. Chart Review Chart Review: Acceptable Risk for Surgery and Patient seen in Pre Admission Testing Teaching & Discussion Pre-Anesthesia Teaching/Discussion Notes: Instructed NPO after midnight before surgery, except medications with 15 cc of water. Medication instructions provided according to the [facility] guidelines. History Surgery Operation Date: 04/18/21 07:30 Proposed Procedures p Repeat Section - Angel Alaniz MD Height/Weight Height: 5 ft 1 in Weight: 82.7 kg Allergies Allergy/AdvReac Type Severity Reaction Status Date / Time latex AdvReac Unknown Rash Verified 04/10/21 11:49 Medications Home Medications Medication Instructions Recorded Confirmed Last Taken albuterol sulfate 90 mcg/actuation 2 puff INHALATION UD PRN 04/10/21 04/10/21 Unknown aerosol inhaler (ProAir HFA) prenat.vits,wade,htn-nlcc-boxlo 1 tab PO QAM 04/10/21 04/10/21 Unknown Past Medical History Medical History (Updated 04/16/21 @ 11:09 by Colette León PA-C) Anxiety and depression HX-controlled since high school per pt Exercise-induced asthma HX OF -last rescue inhaler use 2 months ago during COVID History of COVID-19 FEB 19 2021 + TEST [place] ACHES, [place] POST COVID - COUGH...ALBUTEROL PRN NO SYMPTOMS, NO COUGH FOR PAST 2-3 WEEKS History of kidney stones History of miscarriage X2 History of placenta abruption REASON FOR HX emergency History of varicella and shingles 2019-inguinal area bilat per pt (dx with herpes labialis by PCP) Hx of migraines NONE FOR 2 YEARS Patient denies h/o stroke, seizures, heart attack, heart failure, DM, HTN, low back dysfunction, scoliosis, blood clots or blood transfusions. Exercise / Class Metabolic Activity II 4-5 Yardwork/Stairs/Walk up hill (denies CP or SOB with 1 FOS) Past Family History Family History Mother Depression Denies family history of Ovarian cancer Prostate cancer Breast cancer Colorectal cancer Past Surgical History Surgical History (Updated 04/16/21 @ 11:08 by Colette León PA-C) History of section 09/27/2018. X 1. 1 attempt for CSE. History of repair of ACL LEFT KNEE S/P dilation and curettage HX [place] teeth removed Past Anesthesia History No Hx of Anesthesia Complications and No Family Hx of Anesthesia Complications History of PONV No Hx of Motion Sickness and History of PONV (with emergency ) Social History Smoking Status: Never smoker Do You Dip or Chew Tobacco: No Hx Alcohol Use: No Hx Substance Use: No substance use type: does not use Review of Systems Snoring in later weeks of , denies witnessed apneas or sleep studies. Denies occurrence outside of last few weeks of . Occasional reflux during . Patient denies chest pain, shortness of breath, dyspnea on exertion, fever, chil ls, cough, wheezing, or palpitations. Physical Exam Vital Signs Vitals BP 104/71 P 95 TEMP 98.3 SP02 97% on RA RESP 17 Physical Full cervical extension range of motion without pain Full TMJ range of motion TMD 3.5 finger breaths Mallampati Score 3 Dentition: intact, denies missing, chipped or loose teeth, caps/crowns, implants or bridges Lungs: normal respiratory effort. Clear throughout to auscultation, no adventitious breath sounds Cardiac: regular rate and rhythm, no murmurs noted Carotid arteries: negative bruit bilat Extremities: no distal extremity edema Lab Results Anesthesia Preop Results Results Anesthesia Widget: WBC 9.08 K/uL (4.8-10.8) 04/16/21 Hgb 10.0 g/dL (12.0-16.0) L 04/16/21 Hct 31.1 % (37-47) L 04/16/21 Plt 243 K/uL (130-400) 04/16/21 Na 135 mmol/L (136-145) L 04/16/21 K 4.1 mmol/L (3.5-5.1) 04/16/21 Cl 105 mmol/L (98-107) 04/16/21 CO2 23 mmol/L (21-32) 04/16/21 BUN 7 mg/dl (6-23) 04/16/21 Creat 0.60 mg/dl (0.6-1.2) 04/16/21 Glucose Level 89 mg/dl (70-99(Fasting)) 04/16/21 PT 9.6 Seconds (9.0-12.0) 04/16/21 PTT 28.1 Seconds (21.0-31.0) 04/16/21 INR 0.9 (0.9-1.1) 04/16/21 Blood Type O Positive 04/16/21 Antibody Screen NEGATIVE 04/16/21
[2021-04-18] MEDS ORDERED: LACTATED RINGER'S 1,000 ML IV SCH ×3 (05:45→09:15)
[2021-04-18] MEDS ORDERED: CITRIC ACID/SODIUM CITRATE 15 ML UDC PO SCH (06:00)
[2021-04-18] MEDS ORDERED: cefOXitin 2,000 MG in DEXTROSE 5% 50 ML IV SCH (06:00)
[2021-04-18 06:31] LABS: Basophils # (auto) 0.02 K/uL (0-0.2); Basophils % (auto) 0.2 %; Eosinophils # (auto) 0.09 K/uL (0-0.5); Eosinophils % (auto) 0.9 %; Hemoglobin 9.3 g/dL (12.0-16.0); Immature Granulocytes # (auto) 0.08 K/uL (0.00-0.02); Immature Granulocytes % (auto) 0.8 %; Lymphocytes # (auto) 2.97 K/uL (1.2-3.4); Lymphocytes % (auto) 29.3 %; Mean Corpuscular Hemoglobin 23.9 pg (25-34); Mean Corpuscular Hgb Conc 32.1 g/dL (32-36); Mean Corpuscular Volume 74.6 fL (80-100); Mean Platelet Volume 10.7 fL (7.4-10.4); Monocytes # (auto) 0.81 K/uL (0.11-0.59); Neutrophils # (auto) 6.16 K/uL (1.4-6.5); Neutrophils % (auto) 60.8 %; Platelet Count 218 K/uL (130-400); RDW Coefficient of Variation 14.4 % (11.5-14.5); Red Blood Count 3.89 M/uL (4.2-5.4); White Blood Count 10.13 K/uL (4.8-10.8)
[2021-04-18 06:55] LABS: Alanine Aminotransferase 8 U/L (7-52); Albumin Globulin Ratio 1.1 (0.9-2); Albumin Level 3.2 gm/dl (3.4-5.0); Alkaline Phosphatase 154 U/L (34-104); Anion Gap 7 (3-11); Aspartate Aminotransferase 17 U/L (13-39); Bilirubin,Total 0.3 mg/dl (0.2-1.0); Blood Urea Nitrogen 9 mg/dl (6-23); Carbon Dioxide 22 mmol/L (21-32); Chloride 106 mmol/L (98-107); Creatinine Clr Calc Pharmacy 158.5 ml/min; Est GFR (African American) > 150.0 ml/min; Glucose 73 mg/dl (70-99(Fasting)); Potassium 3.8 mmol/L (3.5-5.1); Sodium 135 mmol/L (136-145); Total Protein 6.2 gm/dl (6.0-8.3)
[2021-04-18 07:18] LABS: Microcytosis Present; Ovalocytes 1+; Polychromasia 1+
[2021-04-18 07:25] LABS: INR 0.9 (0.9-1.1); Partial Thromboplastin Time 27.6 Seconds (21.0-31.0); Prothrombin Time 9.7 Seconds (9.0-12.0)
[2021-04-18] MEDS ORDERED: MoRPHine SULFATE PF 1 MG/ML 10 ML AMP/VIAL ONE (07:44)
[2021-04-18] MEDS ORDERED: LIDOCAINE 2%/EPINEPHRINE 1:100,000 20ML ONE (07:51)
[2021-04-18] MEDS ORDERED: PHENYLEPHRINE HCL 10 MG/ML VIAL ONE (08:43)
[2021-04-18] MEDS ORDERED: ONDANSETRON INJ 2 MG/ML 2 ML VIAL ONE (08:43)
[2021-04-18] MEDS ORDERED: OXYTOCIN 10 UNITS/ML 10ML VIAL ONE (08:43)
[2021-04-18] MEDS ORDERED: KETOROLAC 30 MG/ML VIAL ONE (08:43)
[2021-04-18] MEDS ORDERED: MoRPHine SULFATE 2 MG/ML CARP IV PRN (08:58)
[2021-04-18] MEDS ORDERED: MoRPHine SULFATE PF 1 MG/ML 10 ML AMP/VIAL INT SPINAL ONE (08:58)
[2021-04-18] MEDS ORDERED: NALOXONE HCL 1 MG in SODIUM CHLORIDE 0.9% 1000ML 1,000 ML IV PRN (08:58)
[2021-04-18] MEDS ORDERED: ePHEDrine sulfate 50 MG/ML AMP IV PRN (08:58)
[2021-04-18] MEDS ORDERED: NALBUPHINE HCL INJ 10 MG/ML AMP IV PRN (08:58)
[2021-04-18] MEDS ORDERED: KETOROLAC 30 MG/ML VIAL IV PRN (08:58)
[2021-04-18] MEDS ORDERED: HYDROmorphone INJ 0.5 MG/0.5 ML SYR IV PRN (08:58)
[2021-04-18] MEDS ORDERED: LACTATED RINGER'S 500 ML IV PRN (08:58)
[2021-04-18] MEDS ORDERED: PROMETHAZINE HCL 6.25 MG in SODIUM CHLORIDE 0.9% 50 ML IV PRN (08:58)
[2021-04-18] MEDS ORDERED: ONDANSETRON INJ 2 MG/ML 2 ML VIAL IV PRN (08:58)
[2021-04-18] MEDS ORDERED: MEPERIDINE HCL 25 MG/ML CARP/VIAL IV PRN (08:58)
[2021-04-18] MEDS ORDERED: NALOXONE HCL 0.4 MG/1 ML VIAL/CARP IV PRN (08:58)
[2021-04-18] MEDS ORDERED: diphenhydrAMINE 50 MG/ML VIAL IV PRN (08:58)
[2021-04-18] MEDS ORDERED: NALOXONE HCL 0.08 MG in SYRINGE 1.8 ML IV PRN (08:58)
[2021-04-18] MEDS ORDERED: SODIUM CHLORIDE 0.9% 1000ML 1,000 ML IV SCH (09:00)
[2021-04-18] MEDS ORDERED: NO NARCOTICS OR SEDATIVES SCH (09:00)
[2021-04-18] MEDS ORDERED: DC INTRASPINAL MORPHINE SCH (09:00)
[2021-04-18] MEDS ORDERED: SENNA 8.6 MG TAB PO PRN (09:04)
[2021-04-18] MEDS ORDERED: BENZOCAINE 20% AER SPR 82.5 GM CAN EXT PRN (09:04)
[2021-04-18] MEDS ORDERED: DIPHTHERIA/TETANUS/PERTUSSIS 0.5 ML SYR/VIAL IM ONE (09:04)
[2021-04-18] MEDS ORDERED: MAGNESIUM HYDROXIDE SUSP 30 ML UDC PO PRN (09:04)
[2021-04-18] MEDS ORDERED: HYDROCORTISONE ACETATE 25 MG SUPP PR PRN (09:04)
--- NOTE | 2021-04-18 09:04 | Post Operative Brief Note ---
Immediate Post Op Note v1 Date of Surgery April 18, 2021 Pre & Post Diagnosis Operation Date: 04/18/21 07:30 Pre-Op Diagnosis: Previous Section x 1 Pt desires Repeat Section and Sterilization Post-Op Diagnosis: Previous Section x 1 Pt desires Repeat Section and Sterilization I identified the patient and participated in the time-out.: Yes Procedure Operation Date: 04/18/21 07:30 Actual Procedures p Repeat Section; Live Male at 0810 in OR # 3 - Angel Alaniz MD bilateral tubal ligation Surgeon Angel Alaniz MD Special Education Professional Dr Nichols Estimated Blood Loss 500 Findings Consistent with Post-Op Diagnosis (normal tubes and ovaries) Drains Macias Catheter Anesthesia Type Spinal Disposition Disposition: Recovery Room
[2021-04-18] MEDS ORDERED: OXYTOCIN 20 UNITS in LACTATED RINGER'S 20 ML IV SCH (09:15)
--- NOTE | 2021-04-18 09:16 | Anesthesiology Progress Note ---
Date of Service April 18, 2021 Anesthesia Post Procedure Vital Signs Vital Signs: Temp Pulse Resp BP Pulse Ox 04/18/21 09:11 80 117/68 98 04/18/21 07:33 101 H 98 04/18/21 07:28 93 H 99 04/18/21 07:23 76 99 04/18/21 07:18 79 100 04/18/21 07:13 84 98 04/18/21 07:08 79 99 04/18/21 07:03 79 98 04/18/21 06:58 75 99 04/18/21 06:53 74 99 04/18/21 06:48 81 98 04/18/21 06:43 75 98 04/18/21 06:38 79 98 04/18/21 06:33 77 99 04/18/21 06:28 79 98 04/18/21 06:23 78 99 04/18/21 06:18 84 99 04/18/21 06:13 85 99 04/18/21 06:08 78 99 04/18/21 06:03 91 H 99 04/18/21 05:58 93 H 99 04/18/21 05:53 82 98 04/18/21 05:48 91 H 98 04/18/21 05:45 36.9 C 20 04/18/21 05:43 124 H 116/70 99 Transfer of Care Handoff Completed per policy Notes Mental Status: alert / awake / arousable Nausea / Vomiting: adequately controlled Pain: adequately controlled Airway Patency, RR, SpO2: stable & adequate BP & HR: stable & adequate Hydration State: stable & adequate Neuraxial Anesthesia: was administered and sensory block is resolving Anesthetic Complications: no major complications apparent and Pt Satisfied with anesthetic care
[2021-04-18] MEDS: OXYTOCIN 20 UNITS in LACTATED RINGER'S 1,000 ML IV SCH ×2 (13:10→21:43)
--- NOTE | 2021-04-18 13:20 | Operative Report (OR) ---
PROCEDURE: Repeat low segment section, bilateral partial salpingectomy. INDICATIONS FOR SURGERY: Intrauterine at 39 weeks' gestation, desire for permanent sterili zation. PREOPERATIVE DIAGNOSES: Intrauterine at 39 weeks' gestation, previous , desire fo r permanent sterilization. POSTOPERATIVE DIAGNOSES: Intrauterine at 39 weeks' gestation, previous , desire f or permanent sterilization. Delivered live infant. SURGEON: Millie Alaniz MD MENTAL RETARDATION AIDE: Lester Nichols MD ESTIMATED BLOOD LOSS: 500 mL. ANESTHESIA: Spinal. OPERATIVE FINDINGS AND PROCEDURE: The patient was brought to the OR table, correctly identified by a rmband and conversation. Spinal anesthesia was administered. The patient was positioned on the OR t able. Macias catheter was inserted aseptically in the bladder, connected to gravity drainage. Compre ssion stockings were applied. Lower abdomen was painted with an alcohol based sterilizing solution a nd this was allowed to dry for 3 minutes. Then, the patient was draped in the usual sterile fashion. The level of the spinal anesthesia was tested and found to be adequate. There was a low Pfannensti el scar. An incision was made through the scar and it was carried down to the anterior fascia by sha rp dissection. Hemostasis was secured by electrocauterization. Fascia was incised and the incision was taken out laterally on both the right and left side. Then the fascia was dissected from the rect i muscles up to the umbilicus and down to the pelvic brim. The recti muscles were in the m idline. Peritoneum was carefully raised and entered. Good good visualization of the lower uterine s egment. A bladder retractor was used to expose the lower uterine segment. Peritoneum was then disse cted off the lower portion of the uterus. The lower uterine incision was scored with a knife and the n entered bluntly with the scissors. Clear amniotic fluid was seen at this time. Pathology Collector's hand wa s inserted into the uterus and with fundal pressure, a live male was delivered. Infant breath ing, cried spontaneously, was attended to by the nurses who were present at the time of delivery. Th e cord was allowed to pulse for one full minute before it was clamped and cut and cord blood was take n. The placenta was removed manually, sent for pathological evaluation. Uterus, tubes, and ovaries were brought out through the incision. Good visualization of the lower uterine defect was obtained. Ring forceps were placed on each edge and in the middle. Then, a heavy duty chromic was used to veda roximate the myometrial level. The second layer was placed with a horizontal suture of heavy Vicryl and this made a second approximation over the myometrial approximation and it approximated the fascia l layer. At this time, hemostasis was excellent. The pelvis was then washed of all blood clots and debris. Bilateral tubal ligation was performed by raising the midportion of the fallopian tube, tyin g it proximally and distally with a plain suture. Then, using local with epinephrine to separate the two leaves of the broad ligament, in between the two leaves of the broad ligament, I remov ed a portion of the fallopian tube. Then, I cauterized the proximal stump and then I approximated th e broad ligament front to back burying the proximal stump and exteriorizing the distal stump. This w as done for both the right and left side. Following this, uterus, tubes, and ovaries were reinserted into the abdomen. Hemostasis was checked for, found to be excellent. Careful anatomical approximat ion of the anterior abdominal wall was performed. There were some adhesions of the omentum to the pr evious scar and these were taken down with electrocautery. Then, the peritoneum was closed with a continuous chromic gut suture. The recti muscles were approximated with interrupted figure-o f-eight suture chromic catgut. Fascia was closed with continuous interlocking suture of heavy Vicryl . Subcutaneous was approximated with a running plain and skin edges were approximated with staple cl ips. The patient tolerated the procedure well and left the OR in good condition. Job ID: [id number]
[2021-04-18] MEDS: SIMETHICONE 80 MG CHEW PO SCH ×3 (21:21→21:26)
[2021-04-18] MEDS: DOCUSATE SODIUM 100 MG CAP PO SCH (21:26)
[2021-04-19] MEDS ORDERED: KETOROLAC 30 MG/ML VIAL IV PRN (02:58)
[2021-04-19] MEDS ORDERED: ZOLPIDEM TARTRATE 5 MG TAB PO PRN (02:58)
[2021-04-19] MEDS ORDERED: ONDANSETRON INJ 2 MG/ML 2 ML VIAL IV PRN (02:58)
[2021-04-19] MEDS ORDERED: PROMETHAZINE HCL 25 MG in SODIUM CHLORIDE 0.9% 50 ML IV PRN (02:58)
[2021-04-19] MEDS ORDERED: diphenhydrAMINE Capsule 25 MG CAP PO PRN (02:58)
[2021-04-19] MEDS ORDERED: diphenhydrAMINE 50 MG/ML VIAL IV PRN (02:58)
[2021-04-19] MEDS ORDERED: MEPERIDINE HCL 50 MG/ML CARP IV PRN (02:58)
[2021-04-19] MEDS: oxyCODONE/ACETAMINOPHEN 5mg/325mg TAB PO PRN ×5 (04:00→21:18)
[2021-04-19] MEDS: IBUPROFEN 600 MG TAB PO PRN ×5 (04:00→21:19)
[2021-04-19 06:14] LABS: Basophils # (auto) 0.02 K/uL (0-0.2); Basophils % (auto) 0.1 %; Eosinophils # (auto) 0.07 K/uL (0-0.5); Eosinophils % (auto) 0.4 %; Hematocrit (blood only) 27.2 % (37-47); Hemoglobin 8.8 g/dL (12.0-16.0); Immature Granulocytes # (auto) 0.08 K/uL (0.00-0.02); Immature Granulocytes % (auto) 0.5 %; Lymphocytes % (auto) 15.8 %; Mean Corpuscular Hemoglobin 24.4 pg (25-34); Mean Corpuscular Hgb Conc 32.4 g/dL (32-36); Mean Corpuscular Volume 75.3 fL (80-100); Mean Platelet Volume 10.2 fL (7.4-10.4); Monocytes % (auto) 7.6 %; Neutrophils # (auto) 11.96 K/uL (1.4-6.5); Neutrophils % (auto) 75.6 %; Platelet Count 214 K/uL (130-400); RDW Coefficient of Variation 14.3 % (11.5-14.5); RDW Standard Deviation 39.6 fL (36.4-46.3); Red Blood Count 3.61 M/uL (4.2-5.4); White Blood Count 15.83 K/uL (4.8-10.8)
[2021-04-19] MEDS: DOCUSATE SODIUM 100 MG CAP PO SCH ×2 (08:30→21:18)
[2021-04-19] MEDS: SIMETHICONE 80 MG CHEW PO SCH ×4 (08:30→21:18)
[2021-04-19] MEDS: PRENATAL VITAMIN 1 TAB PO SCH (08:30)
[2021-04-19] MEDS: FERROUS SULFATE 325 MG TAB PO SCH (08:30)
--- NOTE | 2021-04-19 11:30 | Obstetrical Progress Note ---
Date of Service April 19, 2021 Assessment & Plan Admission and Anticipated Discharge Date Admission Date: April 18, 2021 Subjective abdomen soft and non tender good bowel sounds bandage removed incision is clean and dry no calf tenderness vaginal bleeding scant hgb 8.8 Results & Data ([facility]) Vital Signs (Past 12 Hours) Vital Signs Temp Pulse Resp BP Pulse Ox 04/19/21 03:35 36.7 C 88 18 100/64 95 04/19/21 02:30 18 95 04/19/21 01:30 16 96 04/19/21 00:30 18 98 04/18/21 23:35 36.5 C 76 18 103/68 98
[2021-04-19] MEDS ORDERED: bisacodyL 5 MG TABEC PO SCH (20:00)
[2021-04-20] MEDS: oxyCODONE/ACETAMINOPHEN 5mg/325mg TAB PO PRN ×3 (01:31→12:09)
[2021-04-20] MEDS: IBUPROFEN 600 MG TAB PO PRN ×3 (01:31→12:08)
[2021-04-20 06:09] LABS: Hematocrit (blood only) 28.8 % (37-47)
[2021-04-20] MEDS: PRENATAL VITAMIN 1 TAB PO SCH (08:06)
[2021-04-20] MEDS: SIMETHICONE 80 MG CHEW PO SCH (08:06)
[2021-04-20] MEDS: FERROUS SULFATE 325 MG TAB PO SCH (08:06)
[2021-04-20] MEDS: DOCUSATE SODIUM 100 MG CAP PO SCH (08:06)
[2021-04-20] MEDS ORDERED: bisacodyL 10 MG SUPP PR PRN (09:04)
--- NOTE | 2021-04-20 11:15 | Obstetrical Progress Note ---
Date of Service April 20, 2021 Assessment & Plan Admission and Anticipated Discharge Date Admission Date: April 18, 2021 Subjective abdomen soft and non tender incision is clean and dry passing flatus no calf tenderness ambulating well vaginal bleeding scant hgb 9.0 Results & Data ([facility]) Vital Signs (Past 12 Hours) Vital Signs Temp Pulse Resp BP Pulse Ox 04/19/21 23:40 36.7 C 80 18 121/72 97
--- NOTE | 2021-04-20 14:54 | Discharge Summary (DS) ---
DATE OF ADMISSION: 04/18/2021 DATE OF DISCHARGE: 04/20/2021 HOSPITAL COURSE: She is a 4, para 2, had 2 miscarriages. Blood type is O positive, group B strep negative. She was admitted for repeat at 39 weeks. She had a previous due to distress. In present , she had an episode of heavy vaginal bleeding in the mid tr and at that time she was at risk for having a premature infant. We followed her with some se rial ultrasounds, also gave her 2 sets of betamethasone. I think one at about 29 weeks and one at ab out 32 weeks; however, she did well. She never rebled and her cervical length remained good, and she made it right up to 39 weeks. At 39 weeks, she was admitted for repeat . At the time of ad mission, she requested tubal ligation. She was informed that the procedure is intended to result in permanent irreversible sterility. We had her sign for the procedure and then she went and had a repe at low segment section and bilateral tubal ligation. Estimated blood loss at the [facility] of [facility] was 500 mL. Tubal was performed. Postoperatively, she did well. Bowel sounds returned the nex t postoperative day. On the second postoperative day, she was ambulating well, eating well and reques [place] discharge. Her preoperative hemoglobin was 9.3. At the time of discharge, her hemoglobin was 9. 0. She was given prescription for Percocet and Motrin, told to call the office if she had a temperat ure over 100 or any heavy bleeding, to return the following week for removal of lisa. Job ID: [id number]
== END 2021-04-20 13:20 | disposition home or self-care (01) | DRG 785 ==
LOC: 4S1 05:28 → EDSTATUS 07:30 → 4S2 14:55